=== PATIENT | male | born 1970 | race Caucasian/White ===

== ENCOUNTER 2024-04-22 09:25 | Emergency (ER) | payer SELFPAY ==
[~2024-04-22] VITALS: Ht 180.3 cm; Wt 79.4 kg
[2024-04-22 09:48] VITALS: TEMP 97.6; O2SAT 100
[2024-04-22 10:51] VITALS: PULSE 73; RESP 16
== END 2024-04-22 10:55 | disposition home or self-care (01) ==
LOC: FSED 09:30
DX: R68.83 Chills (without fever) (principal); R53.1 Weakness; R74.8 Abnormal levels of other serum enzymes; K21.9 Gastro-esophageal reflux disease without esophagitis; R52 Pain, unspecified; Z11.52 Encounter for screening for COVID-19
CPT/HCPCS: 0223U; 80053; 81003; 85025; 87400; 99283